=== PATIENT | female | born 1995 | race Caucasian/White ===

== ENCOUNTER → 2022-08-27 | Outpatient (CLI) | payer BC ==
[2022-08-27 14:10] LABS: FREE T4 1.06 NG/DL (0.89-1.76); VITAMIN B12 LEVEL 1049 PG/ML (211-911)
[2022-08-27 14:11] LABS: FERRITIN 22.8 NG/ML (7.3-270.7)
[2022-08-27 14:12] LABS: THYROID STIMULATING HORMONE 0.892 uIU/ML (0.55-4.78)
[2022-08-27 14:13] LABS: TOTAL 25(OH) VITAMIN D 26.2 NG/ML (20.0-100.0)
[2022-08-27 14:14] LABS: IRON (FE) 58 UG/DL (50-170); PERCENT SATURATION 16.5 % (13.2-45.0); TOTAL IRON BINDING CAPACITY 351 UG/DL (250-425)
[2022-08-27 14:16] LABS: BASO % 0.5 % (0.0-1.0); EOS # 0.1 10^3/uL (0.0-0.5); HEMATOCRIT 42.4 % (36.0-47.0); LYMPH # 2.6 10^3/uL (1.5-5.0); MEAN CORPUSCULAR HEMOGLOBIN 32.1 pg (27.0-33.0); MEAN CORPUSCULAR VOLUME 97.2 fl (80.0-96.0); MONO # 0.6 10^3/uL (0.0-0.8); MONO % 6.9 % (2.0-8.0); NEUTROPHILS # 5.4 10^3/uL (1.5-8.5); NEUTROPHILS % 61.3 % (36.0-66.0); PLATELET COUNT, AUTOMATED 362 10^3/uL (150-450); RED BLOOD COUNT 4.36 10^6/uL (4.00-5.40); WHITE BLOOD COUNT 8.8 10^3/uL (4.0-10.0)
[2022-08-27 14:31] LABS: HEMOGLOBIN A1c 5.2 % (4.0-6.0)
[2022-08-27 14:45] LABS: ALBUMIN 3.7 G/DL (3.2-5.2); ALKALINE PHOSPHATASE 59 U/L (46-116); ALT/SGPT 44 U/L (7.0-40); AST/SGOT 25 U/L (<34); BILIRUBIN,TOTAL 0.4 MG/DL (0.3-1.2); BLOOD UREA NITROGEN 13 MG/DL (9-23); CALCIUM LEVEL 9.1 MG/DL (8.5-10.1); CARBON DIOXIDE LEVEL 28 MMOL/L (20-31); CHLORIDE LEVEL 106 MMOL/L (98-107); GLOMERULAR FILTRATION RATE > 60.0 (>60); GLUCOSE, FASTING 94 MG/DL (60-100); POTASSIUM SERUM 4.3 MMOL/L (3.5-5.1); SODIUM LEVEL 141 MMOL/L (136-145); TOTAL PROTEIN 7.2 G/DL (5.7-8.2)
== END ==
LOC: M PLALAB 10:34
PROVIDERS: ATTEND Registered Nurse
DX: M25.559 Pain in unspecified hip (principal); E66.9 Obesity, unspecified; E55.9 Vitamin D deficiency, unspecified; D50.9 Iron deficiency anemia, unspecified

== ENCOUNTER → 2023-07-21 | Outpatient (CLI) | payer BC ==
[~2023-07-21] MED LIST: E-Z-GAS II EFFERVESCENT PACKET (SODIUM BICARB./CITRIC ACID/SIMETHICONE) As Ordered ONE; E-Z-HD 98% w/w 340GM SUSP BTL As Ordered ONE; E-Z-PAQUE 96% w/w SUSP 176GM BTL As Ordered ONE
== END ==
LOC: M RAD 10:12
PROVIDERS: ATTEND Registered Nurse
DX: K21.9 Gastro-esophageal reflux disease without esophagitis (principal)